=== PATIENT | female | born 1960 | race Caucasian/White ===

== ENCOUNTER → 2016-12-08 | Outpatient (CLI) | payer BC ==
[2016-12-08 12:37] LABS: BASOPHILS # (AUTO) 0.05 10*3/UL; BASOPHILS % (AUTO) 0.6 % (0-1); EOSINOPHILS # (AUTO) 0.21 10*3/UL; EOSINOPHILS % (AUTO) 2.6 % (0-8); HEMATOCRIT 46.6 % (37.0-47.0); HEMOGLOBIN 15.7 g/dL (12.0-16.0); LYMPHOCYTES # (AUTO) 1.89 10*3/uL; MEAN CORPUSCULAR HGB CONC 33.7 g/dL (33-37); MEAN CORPUSCULAR VOLUME 92.1 FL (81-99); MEAN PLATELET VOLUME 11.3 FL (7.4-12.2); MONOCYTES # (AUTO) 0.61 10*3/UL (0.3-0.8); MONOCYTES % (AUTO) 7.5 % (5-15); NEUTROPHILS # (AUTO) 5.35 10*3/UL; NEUTROPHILS % (AUTO) 65.9 % (50-80); RED BLOOD COUNT 5.06 10^6/uL (4.20-5.40)
[2016-12-08 12:41] LABS: PLATELET MORPHOLOGY COMMENT NORMAL MORPHOLOGY (NORM); RBC MORPHOLOGY COMMENT NORMAL MORPHOLOGY (NORM); WBC MORPHOLOGY COMMENT NORMAL MORPHOLOGY (NORM)
[2016-12-08 12:45] LABS: BILIRUBIN,URINE SMALL (NEG); CLARITY,URINE CLEAR (CLEAR); COLOR,URINE YELLOW; GLUCOSE, URINE (UA) NEGATIVE (NEG); NITRATE,URINE NEGATIVE (NEG); OCCULT BLOOD,URINE NEGATIVE (NEG); PROTEIN,URINE NEGATIVE (NEG); UROBILINOGEN,URINE 0.2 mg/dL (0.2)
[2016-12-08 12:48] LABS: BLOOD UREA NITROGEN 11 mg/dL (7-22); BUN/CREATININE RATIO 18.33 (6-20); CALCIUM 9.2 mg/dL (8.7-10.7); CHOL/HDL RATIO 3.21 RATIO (0-4.0); EST GLOMERULAR FILTRATION > 60 (>60 ml/min/1.73m(2)); HDL CHOLESTEROL 64 mg/dL (40-150); SERUM ALBUMIN 4.6 g/dL (3.5-4.8); SERUM CHOLESTEROL 206 mg/dL (120-200)
[2016-12-08 13:00] LABS: URINE SAMPLE TYPE CLEAN CATCH URINE
[2016-12-08 13:01] LABS: SQUAMOUS EPITHELIAL CELL,UR MANY
[2016-12-08 13:43] LABS: ERYTHROCYTE SEDIMENTATION RATE 10 MM/HR (0-20)
== END ==
LOC: MOB LAB 11:31
PROVIDERS: ATTEND Internal Medicine
DX: E05.90 Thyrotoxicosis, unspecified without thyrotoxic crisis or storm (principal); E66.9 Obesity, unspecified; R21 Rash and other nonspecific skin eruption; R94.6 Abnormal results of thyroid function studies; E89.40 Asymptomatic postprocedural ovarian failure; Z87.891 Personal history of nicotine dependence; Z87.09 Personal history of other diseases of the respiratory system
CPT/HCPCS: 36415; 80053; 80061; 81001; 84439; 84481; 85025; 85652

== ENCOUNTER → 2016-12-13 | Outpatient (CLI) | payer BC ==
--- NOTE | 2016-12-13 15:19 | DI ---
US SOFT TISSUE HEAD/NECK,12/13/2016 9:01 AM: Clinical History: Hyperthyroidism. Previous Exam: March 11, 2015 Findings: Multiple grayscale and color Doppler sonographic images are obtained through the thyroid, and demonst rate 2 large masses within the right lobe of the thyroid. Other smaller nodules are also noted. The l argest on the right was seen inferiorly measuring 3.4 x 3.0 x 2.8 cm. This was a solid mass, and is e ssentially unchanged when taking into account sampling differences. The smaller, more superior mass m easures 2.8 x 2.1 x 1.9 cm which is also likely stable from the prior exam. Within the left thyroid lobe, there is a 9 x 6 x 9 mm homogeneous isoechoic mass with a hypoechoic lindsay lo. This was not measured on the prior exam. Biopsy of this lesion should also be considered. There is also a heterogeneous mass within the superior portion of the left thyroid lobe measuring 2.4 x 1.2 x 1.3 cm. The right lobe of the thyroid in its entirety measured 6.3 x 3.2 x 3.2 cm and was diffusely heterogen eous. The left thyroid lobe measured 5.1 x 1.6 x 1.8 cm and was also diffusely heterogeneous. The thyroid i sthmus measured 3 mm. Impression: 1. New solid mass within the superior left thyroid lobe which was not appreciated on the prior exam. Consider biopsy of this new lesion for further evaluation. This measured 2.4 x 1.2 x 1.3 cm. 2. Homogeneous mass with a hypoechoic halo within the left thyroid lobe measuring 9 x 6 x 9 mm. This was also not appreciated on the prior exam.
== END ==
LOC: US 08:56
PROVIDERS: ATTEND Internal Medicine
DX: E05.90 Thyrotoxicosis, unspecified without thyrotoxic crisis or storm (principal)
CPT/HCPCS: 76536

== ENCOUNTER → 2017-01-16 | Outpatient (CLI) | payer BC ==
--- NOTE | 2017-01-16 14:09 | GEN.OPNOTE ---
Operative Note Surgery Date: 01/16/17 Preoperative Diagnosis: Thyroid nodules 4. Left upper, left lower, right upper , and right lower. Postoperative Diagnosis: Same. Procedure: FNA of thyroid nodules 4 with ultrasound guidance. 4 separate nodules were biopsied. Surgeon: Alfredo Cole MD Anesthesia Type: Local (1% Xylocaine with epinephrine) Estimated Blood Loss (mL): 2 Fluids: No fluids. Pathology: Air dried slides, slides in CytoLyt, and needle washed in CytoLyt all sent for each of the 4 separate biopsies. Indications: Multiple thyroid nodules. Indeterminate biopsies of the right nodules 2 years ago. New lesions on the left. Findings: 4 separate thyroid nodules. Complications: None. Operative Summary: I met the patient in the ultrasound suite. The radiologist was present for localizing the nodule. The neck was prepped in a sterile fashion. Each nodule was treated separately but all were treated identically. There were 4 separate local injection sites and 4 separate punctures in the neck. The skin was infiltrated with 1% plain Xylocaine. After the nodule was located I used a 5 mL syringe and a 22 gauge needle. Under ultrasound guidance a needle was passed into the nodule. Suction was applied. The needle was moved back and forth through the nodule obtaining a specimen. I then removed the needle from the neck and the radiologist held pressure for 10 minutes. After he held pressure he did an ultrasound to assure no hematoma formation. An appropriate dressing was placed. I personally prepared the slides. I prepared both CytoLyt as well as air dried slides. Needle wash was done in CytoLyt. All specimens were labeled appropriately. I prepared the pathologic report and personally delivered the specimen to the lab. Patient tolerated the procedure well without complication. The well call the results of biopsies when available. Patient will make an appointment in approximately 1 week to discuss the options.
--- NOTE | 2017-01-16 16:03 | DI ---
ULTRASOUND GUIDED FINE NEEDLE ASPIRATION OF THE BOTH LOBES OF THE THYROID, 01/16/2017 12:42 PM: Clinical History: Abnormal thyroid ultrasound. 2 solid lesions of the right lobe of the thyroid gland have increased in size and there are 2 new nodules in the left lobe. Previous Exam: 12/13/2016. Operating Surgeon: Alfredo Cole. Fiberglass Ski Maker: Dr. Renee. Informed signed consent was obtained in the doctor's office prior to the procedure. A "time out" sess ion was performed to verify the patient's name and date of prior to initiating this procedure. The neck was prepped with ChloraPrep with orange tint. Sterile gel was used as the acoustical couplin g agent. 1% lidocaine without epinephrine was used for intradermal and subcutaneous local anesthesia at 4 different sites. These were in both upper lobes in both lower lobes. The fine needle was inserte d once at each site using US for localization, and multiple aspiration passes were performed with the FNA needle. These attempts resulted in good slide specimens being obtained. The slide specimens were hand carried by the surgeon to the lab for delivery to the reference pathology facility. Hemostasis was achieved with direct compression. The patient was discharged from the X-ray Department in stable, unchanged condition. The patient was advised to watch for signs of a developing hematoma (including but not limited to swelling and pain in the neck region) as well as for signs of an infect ion (including but not limited to redness, swelling, fever). She was instructed to either contact the surgeon directly or to report to the Emergency Room immediately if problems arose. Reading: Successful and uncomplicated fine needle aspiration of the upper pole and lower pole thyroid nodules (4 separate lesions).
== END ==
LOC: US 12:40
PROVIDERS: ATTEND Surgery
DX: E04.1 Nontoxic single thyroid nodule (principal)
CPT/HCPCS: 10022